=== PATIENT | male | born 1935 | race Caucasian/White ===

== ENCOUNTER 2018-11-04 10:15 | Inpatient (IN) | payer MEDICARE, BC ==
[~2018-11-04] VITALS: Ht 167.6 cm; Wt 96.2 kg
[2018-11-04] VITALS (8 sets, daily range): BP systolic 123–152; BP diastolic 55–77
--- NOTE | 2018-11-04 10:17 | NUR ---
Pt immediately to room # 13 with cane assist. Refused W/C.
[2018-11-04 11:00] LABS: HEMATOCRIT 34.5 % (39.0-50.0); HEMOGLOBIN 10.8 g/dl (14.0-18.0); IMMATURE GRANULOCYTES 0.3 % (0.0-5.0); MEAN CELL VOLUME 91.8 fL CALC (80.0-100.0); MEAN CORPUSCULAR HGB 28.7 pG CALC (26.0-32.0); MEAN CORPUSCULAR HGB CONC 31.3 g/L CALC (32.0-36.0); NEUT# 3.81 thou/uL (1.82-7.42); RED BLOOD COUNT 3.76 mill/uL (4.70-6.10); RED CELL DISTRI WIDTH 14.4 % (11.5-15.5)
[2018-11-04 11:18] LABS: ALBUMIN 4.2 g/dL (3.2-5.0); ALKALINE PHOSPHATASE 74 u/l (38-126); ANION GAP 15 (6-22 (CALC)); BILIRUBIN, TOTAL 0.9 mg/dL (0.0-1.4); BUN 28 mg/dL (8-23); BUN/CREATININE RATIO 24 (12-20 (CALC)); CARBON DIOXIDE 29 mmol/l (22-30); CHLORIDE 103 mmol/l (95-108); CREATININE 1.1 mg/dL (0.7-1.3); GFR > 60 ML/MIN (>=60 (CALC)); GFR FOR AFR.AMER. > 60 ML/MIN (>=60 (CALC)); POTASSIUM 4.1 mmol/l (3.5-5.1); SGOT/AST 29 u/l (19-48); SODIUM 142 mmol/l (137-146); TOTAL PROTEIN 7.2 g/dL (6.3-8.2)
[2018-11-04 11:30] LABS: MYOGLOBIN 70 ng/mL (0 - 121)
[2018-11-04 11:50] LABS: TSH, 3RD GENERATION 1.65 uIU/mL (0.47 - 4.68)
[2018-11-04] MEDS ORDERED: TORSEMIDE20 M1 PO (11:56)
[2018-11-04] MEDS ORDERED: OMEPRAZOLE10 MG PO (11:56)
[2018-11-04] MEDS ORDERED: MICRO-K10 ME1 PO (11:57)
[2018-11-04] MEDS ORDERED: MULTI VIT PO (11:57)
[2018-11-04] MEDS ORDERED: LOSARTAN POTASS50 MG PO (11:57)
[2018-11-04] MEDS ORDERED: FERROUS SULF324 M1 PO (11:58)
[2018-11-04] MEDS ORDERED: ATORVASTATIN CA40 MG PO (11:59)
[2018-11-04] MEDS ORDERED: AMLODIPINE5 MG PO (11:59)
[2018-11-04] MEDS ORDERED: FLUOXETINE10 M2 PO (12:00)
[2018-11-04] MEDS ORDERED: ASPIRIN EC325 MG PO (12:00)
[2018-11-04 12:04] LABS: URINE BILIRUBIN - DIPSTICK NEGATIVE (NEGATIVE); URINE BLOOD DIPSTICK NEGATIVE (NEGATIVE); URINE COLOR YELLOW; URINE GLUCOSE - DIPSTICK NEGATIVE (NEGATIVE); URINE KETONE NEGATIVE (NEGATIVE); URINE LEUK ESTERASE NEGATIVE (NEGATIVE); URINE NITRITE - DIPSTICK NEGATIVE (Negative); URINE PH 6.5 (4.5-8.0); URINE PROTEIN - DIPSTICK NEGATIVE (NEG-TRACE); URINE SPECIFIC GRAVITY <=1.005; URINE UROBILINOGEN - DIPSTICK 0.2 E.U./dL (0.2)
[2018-11-04] MEDS ORDERED: NITROGLYCERIN0.4 MG SL (12:06)
--- NOTE | 2018-11-04 14:13 | NUR ---
URINE OUTPUT 800 ML SINCE LASIX ADMINISTRATION. PT TAKEN TO ROOM 273 WITHOUT INCIDENT, REPORT WAS TO BRAULIO.
--- NOTE | 2018-11-04 15:45 | NUR ---
REPORT RECEIVED FROM BARB IN ED, PT ARRIVED ON UNIT VIA STRETCHER @ 1408 AND TRANSFERRED TO BED. ALERT AND ORIENTED X 3, ORIENTED TO ROOM AND CALL KAUFMAN, O2 @ 2L VIA NC IN PLACE WITH SHALLOW BREATHING, TELE MONITOR IN PLACE, DENY PAIN, WILL CONTINUE TO MONITOR, SPOUSE AT BEDSIDE.
--- NOTE | 2018-11-04 19:55 | NUR ---
PT. SITTING UP IN BED WITH NO DISTRESS NOTED AT THIS TIME; ASSESSMENT COMPLETED; IV SITE PATENT AND SL. UPDATED ON POC; VERBALIZES UNDERSTANDING; TELEMETRY IN PLACE; O2 INFUSING PER NC PER ORDER; INSTRUCTED TO CALL FOR ANY NEEDS; CALL LIGHT IS IN REACH; WILL CONTINUE TO MONITOR.
--- NOTE | 2018-11-04 20:10 | NUR ---
RECEIVED PHONE CALL PT'S HR DIPPED DOWN TO MID 30'S, BUT DID NOT SUSTAIN AND NOW IS STAYING IN THE MID TO HIGH 40'S; PT. IS ASYMPTOMATIC; NITRO PASTE REMOVED FROM CHEST; DENIES PAIN; CALL LIGHT IS IN REACH.
--- NOTE | 2018-11-04 20:51 | NUR ---
NOTIFIED DR. KATHLEEN OF HR DIPPING INTO THE 30'S AND SUSTAINING IN THE 40'S.
--- NOTE | 2018-11-04 21:47 | NUR ---
SPOKE WITH DR. KATHLEEN AND PER MD HE WANTS TO TRANSFER PT. TO ICU DUE TO LOW HR; UPDATED PT. AND IN ROOM AT THIS TIME.
--- NOTE | 2018-11-04 21:50 | NUR ---
REPORT GIVEN TO IZABEL CROOKS; NURSE TO CALL WHEN READY FOR PT. TO BE TRANSFERRED.
--- NOTE | 2018-11-04 22:05 | NUR ---
PT. BROUGHT TO ICU VIA W/C ACCOMPANIED BY THIS SUPERVISOR WEBBING; PT. ALBAN;
--- NOTE | 2018-11-04 22:22 | NUR ---
PT ARRIVED TO ICU UNIT AT 2205 VIA WHEELCHAIR WITH MEDSURG STAFF; ALERT AND ORIENTED AND IN STABLE CONDITION. AT BEDSIDE. DENIES PAIN ON ADMISSION. SLIGHLTY SOB WITH EXERTION; REAMAINS ON 3L OF OXYGEN VIA NC. CONNECTED TO CONTINUOUS TELE MONITORING; CURRENTLY AFIB 48 WITH BBB. ORIENTED TO ROOM AND CALL LIGHT SYSTEM. EDUCATED ON ICU VS. NO IMMEDIATE REQUESTS AT THIS TIME. NEW URINAL AND ICE WATER PROVIDED. SAFETY MEASURES IN PLACE. CALL LIGHT WITHIN REACH.
--- NOTE | 2018-11-04 23:12 | NUR ---
PT TURNED LIGHTS AND TV OUT. RESTING WITH EYES CLOSED AND NO SIGNS OF DISTRESS. STABLE TO TELEMETRY. WILL CONTINUE TO MONITOR.
[2018-11-05] VITALS (11 sets, daily range): BP systolic 106–143; BP diastolic 49–73
--- NOTE | 2018-11-05 01:37 | NUR ---
PT AWAKE USING URINAL. IV SITE APPEARS HEALTHY AND FLUSHES TO RAC. AFIB IN THE 50'S AND 60'S; PULSE DROPPED LOW 45 SINCE TRANSFER TO UNIT. NO REQUESTS OR CONCERNS AT THIS TIME. CALL LIGHT WITHIN REACH.
--- NOTE | 2018-11-05 03:40 | NUR ---
ASLEEP IN SEMI FOWLERS WITH NO SIGNS OF DISTRESS. NO CHANGES IN CONDITION. HEART RATE IN THE 40'S TO 60'S.
[2018-11-05 05:44] LABS: HEMATOCRIT 31.5 % (39.0-50.0); HEMOGLOBIN 9.9 g/dl (14.0-18.0); IMMATURE GRANULOCYTES 0.2 % (0.0-5.0); MEAN CELL VOLUME 90.8 fL CALC (80.0-100.0); MEAN CORPUSCULAR HGB 28.5 pG CALC (26.0-32.0); MEAN CORPUSCULAR HGB CONC 31.4 g/L CALC (32.0-36.0); NEUT# 3.85 thou/uL (1.82-7.42); RED BLOOD COUNT 3.47 mill/uL (4.70-6.10); RED CELL DISTRI WIDTH 14.3 % (11.5-15.5)
[2018-11-05 06:01] LABS: ALBUMIN 3.5 g/dL (3.2-5.0); ALKALINE PHOSPHATASE 68 u/l (38-126); AMYLASE < 30 u/l (30-110); ANION GAP 14 (6-22 (CALC)); BILIRUBIN, TOTAL 0.8 mg/dL (0.0-1.4); BUN 26 mg/dL (8-23); BUN/CREATININE RATIO 23 (12-20 (CALC)); CARBON DIOXIDE 29 mmol/l (22-30); CHLORIDE 103 mmol/l (95-108); CREATININE 1.1 mg/dL (0.7-1.3); GFR > 60 ML/MIN (>=60 (CALC)); GFR FOR AFR.AMER. > 60 ML/MIN (>=60 (CALC)); LIPASE 53 u/l (23-300); MAGNESIUM 2.1 mg/dL (1.6-2.3); POTASSIUM 4.2 mmol/l (3.5-5.1); SGOT/AST 20 u/l (19-48); SODIUM 142 mmol/l (137-146); TOTAL PROTEIN 5.9 g/dL (6.3-8.2)
--- NOTE | 2018-11-05 07:30 | NUR ---
ASSESSMENT IS COMPLETED: IV SITE IS FREE FROM REDNESS OR EDEMA. HR IS IRREGULAR, ABD IS SOFT WITH ACTIVE BS. BREATH SOUNDS ARE CLEAR WITH EXPIRATORY WHEEZING NOTED., O2 @ 2LITERS WITH NC. SOB ON EXERTION. CONTINUE TO OSBERVE AND MONITOR.
--- NOTE | 2018-11-05 10:00 | NUR ---
PT IS RELAXING AND VISITING WITH FAMILY AND FRIENDS.
--- NOTE | 2018-11-05 11:40 | NUR ---
IN TO VISIT WITH PT AND FAMILY. WAITING ON DR. NO TO SEE PT. TORACENTESIS CAN'T BE DONE UNTIL TOMORROW DUE TO LOVENOX, WILL RECHECK THE XRAY FOR FLUID
--- NOTE | 2018-11-05 12:00 | NUR ---
PT IS RELAXING IN BED WITH NO DISTRESS NOTED. SPOUSE IS IN THE ROOM. IV SITE IS FREE FROM REDNESS OR EDEMA.
--- NOTE | 2018-11-05 12:40 | NUR ---
PT TRANSPORTED TO XRAY VIA WC WITH STAFF. NO DISTRESS NOTED. FAMILY IN THE ROOM.
--- NOTE | 2018-11-05 13:06 | NUR ---
PT RETURNED FROM XRAY VIA WC ACCOMPANIED BY STAFF.
--- NOTE | 2018-11-05 14:00 | NUR ---
PT IS RELAXING IN BED WITH NO DISTRESS NOTED, IV SITE IS FREE FROM REDNESS OR EDEMA.
--- NOTE | 2018-11-05 15:25 | NUR ---
PT HR RATE IS 48 WHEN RESTING HE DROPS TO 39-43 THEN BACK UP TO THE 50'S
--- NOTE | 2018-11-05 16:00 | NUR ---
PT HAS BEEN RESTING ALARM HAS SOUNDED WHEN HEART RAT DROPS BELOW 45 THEN RETURNS TO THE 50'S, SOB ON EXERTION
--- NOTE | 2018-11-05 16:33 | NUR ---
Spoke with patient and his about any concerns they may have. Went through medication reconciliation list with the patient and his and verified what was entered was correct. Verified that the patient did not have any allergies. The patient uses [facility] as his Pharmacy and his primary care doctor is Dr. Merrill in [place], [place]. Instructed patient and his to contact pharmacy if there are any questions or concerns.
--- NOTE | 2018-11-05 17:25 | NUR ---
ZHOU FROM CASE MANAGEMENT CALLED TO INFORM THAT [facility]UKAS IN THE BUILDING.
--- NOTE | 2018-11-05 17:37 | NUR ---
INTO SEE PT.
--- NOTE | 2018-11-05 18:01 | NUR ---
PT IS SITTING UP ON THE SIDE OF THE BED SPOKE WITH DR. NO CURRENT HEART RATE IS 54
--- NOTE | 2018-11-05 18:07 | NUR ---
PT'S HRT RATE WENT TO 35 UP TO 49 WITH PVC'S
--- NOTE | 2018-11-05 18:24 | NUR ---
INFORMED CASE MANAGEMENT RE: MARYBEL, WANTS TO TAKE PT TOMORROW IF THE PT AGREES FOR [facility] TO HAVE POSSIBLE HEART CATH AND PACEMAKER/
--- NOTE | 2018-11-05 19:58 | NUR ---
BEDSIDE REPORT RECEIVED FROM AGUSTIN LEY. PT RESTING IN BED SEMI FOWLERS WATCHING TV; ALERT AND ORIENTED. RESPIRATIONS EVEN AND UNLABORED ON OXYGEN; TITRATED FROM 3L TO 2L AND OXYGEN SATURATION IS 97%. NEW ORDER IN FOR 80 MG OF LASIX. 16F TA CATHETER PLACED AT THIS TIME FOR ACCURATE I&0'S. PLAN OF CARE REVIEWED WITH PT INCLUDING TRANFER/DISCHARGE PLANS. ENCOURAGED TO VERBALIZE CONCERNS. SAFETY MEASURES IN PLACE. CALL LIGHT WITHIN REACH.
--- NOTE | 2018-11-05 21:49 | NUR ---
TA DRAINING CLEAR PALE YELLOW URINE IN LARGE AMOUNTS; PT TOLERATING WELL. IV SITE APPEARS HEALTHY AND FLUSHES. CINTIA HOSE ON; TELE IN PLACE. HEART RATE TEMPORARILY DOWN IN THE LOW 30'S; CURRENTLY AFIB 53. PT VERY TALKATIVE AND FRIENDLY. NO REQUESTS OR CONCERNS AT THIS TIME.
--- NOTE | 2018-11-05 23:13 | NUR ---
PT REQUESTING ICE CREAM; PROVIDED. NO OTHER REQUESTS OR COMPLAINTS AT THIS TIME.
[2018-11-06] VITALS (7 sets, daily range): BP systolic 109–156; BP diastolic 49–78
--- NOTE | 2018-11-06 01:08 | NUR ---
PT ASLEEP AT THIS TIME WITH NO SIGNS OF DISTRESS. RESPIRATIONS EVEN AND UNLABORED. NO ACUTE CHANGES IN CONDITION. SAFETY MEASURES IN PLACE. PT AWARE THAT STOOL SPECIMEN IS STILL NEEDED. CALL LIGHT WITHIN REACH.
--- NOTE | 2018-11-06 03:10 | NUR ---
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 DENIES PAIN. NO NEEDS AT THIS TIME. AFIB 48 WITH PVS ON TELE.
--- NOTE | 2018-11-06 04:48 | NUR ---
AN ADDITIONAL 325ML EMPTIED FROM TA. AFEBRILE. AM WEIGHT OBTAINED; 3 LB WEIGHT LOSS SINCE ADMISSION.
[2018-11-06 04:52] LABS: HEMATOCRIT 32.7 % (39.0-50.0); HEMOGLOBIN 10.2 g/dl (14.0-18.0); IMMATURE GRANULOCYTES 0.3 % (0.0-5.0); MEAN CELL VOLUME 91.3 fL CALC (80.0-100.0); MEAN CORPUSCULAR HGB 28.5 pG CALC (26.0-32.0); MEAN CORPUSCULAR HGB CONC 31.2 g/L CALC (32.0-36.0); NEUT# 3.38 thou/uL (1.82-7.42); RED BLOOD COUNT 3.58 mill/uL (4.70-6.10); RED CELL DISTRI WIDTH 14.2 % (11.5-15.5)
[2018-11-06 05:12] LABS: ALBUMIN 3.5 g/dL (3.2-5.0); ALKALINE PHOSPHATASE 67 u/l (38-126); ANION GAP 13 (6-22 (CALC)); BILIRUBIN, TOTAL 0.9 mg/dL (0.0-1.4); BUN 24 mg/dL (8-23); BUN/CREATININE RATIO 24 (12-20 (CALC)); CARBON DIOXIDE 30 mmol/l (22-30); CHLORIDE 102 mmol/l (95-108); GFR > 60 ML/MIN (>=60 (CALC)); GFR FOR AFR.AMER. > 60 ML/MIN (>=60 (CALC)); MAGNESIUM 2.1 mg/dL (1.6-2.3); POTASSIUM 4.3 mmol/l (3.5-5.1); SGOT/AST 23 u/l (19-48); SODIUM 141 mmol/l (137-146)
--- NOTE | 2018-11-06 06:25 | NUR ---
PT RESTING IN BED WITH EYES CLOSED AND NO SIGNS OF DISTRESS. RESPIRATIONS EVEN AND UNLABORED ON OXYGEN. CALL LIGHT WITHIN REACH. WILL CONTINUE TO MONITOR.
--- NOTE | 2018-11-06 08:14 | NUR ---
DR NO @BEDSIDE WITH PT & DISSCUSSING POC
--- NOTE | 2018-11-06 10:56 | NUR ---
PT SEEN AWAKE, ALERT, AT BEDSIDE. PT HAS BEEN SEEN BY DR NO AND DR KATHLEEN THIS MORNING. PLAN IS TO TRANSFER TO [facility] TODAY FOR CARDIAC CATH AND POSSIBLE PACEMAKER INSERTION. PT ASYMPTOMATIC WITH LOW HR IN THE UPPER 40s TO 50s OFTEN.
--- NOTE | 2018-11-06 12:11 | NUR ---
PT SITTING UP AT SIDE OF BED FOR LUNCH. PT AWARE OF PLAN TO TRANSFER TO [facility] AND WAIT TIME INVOLVED. NO DISTRESS, NO SYMPTOMATIC BRADYCARDIA, NO CHEST PAIN. REMAINS AT BEDSIDE.
--- NOTE | 2018-11-06 15:44 | NUR ---
JONO CALLED FROM TRANSFER CENTER TO SEE IF PT IS A&O FOR ROOM PLACEMENT. WILL CALL BACK SHORTLY WITH ROOM ASSIGNMENT.
--- NOTE | 2018-11-06 15:49 | NUR ---
PT GIVEN SHERBERT ICE CREAM FOR HIM & .
--- NOTE | 2018-11-06 16:22 | NUR ---
[facility] CALLED FOR TRANSPORT TO [facility], STATE 2 HOUR TIME FRAME. PT UPDATED ON NEW INFORMATION. REMAINS AT BEDSIDE, NOW UNSURE IF SHE WILL TRAVEL THERE TONIGHT. PT CONTINUES BEFORE, NO COMPLAINTS, NO DISTRESS.
--- NOTE | 2018-11-06 19:10 | NUR ---
awake. denies c/o. o2 cont per nc. pvc monitor shows a fib pvcs. #20 rac saline lock. sousa cath in place. urine clear. fall precautions cont. pt & aware of impending transfer.
--- NOTE | 2018-11-06 19:45 | NUR ---
[facility] here. report given to mina.
--- NOTE | 2018-11-06 20:05 | NUR ---
[facility] left.
--- NOTE | 2018-11-06 20:30 | NUR ---
[facility] called @ [phone]. spoke to randi. "josh is in a pts room. she'll call you back."
--- NOTE | 2018-11-06 21:15 | NUR ---
josh returned call. report given.
== END 2018-11-06 20:05 | disposition short-term general hospital (02) | DRG 292 ==
LOC: ED 10:15 → ED-I 11:25 → ED 12:16 → MS2 12:16 → ICU 12:16
PROVIDERS: Emergency Medicine; ADMIT Internal Medicine Nephrology; ATTEND Internal Medicine Nephrology
PROC: 0T9B70Z Drainage of Bladder with Drainage Device, Via Natural or Artificial Opening (ICD-10-PCS; principal; 2018-11-05)
DX: I11.0 Hypertensive heart disease with heart failure (principal); J91.8 Pleural effusion in other conditions classified elsewhere; I50.23 Acute on chronic systolic (congestive) heart failure; I25.5 Ischemic cardiomyopathy; I49.5 Sick sinus syndrome; I48.2 Chronic atrial fibrillation; I25.10 Atherosclerotic heart disease of native coronary artery without angina pectoris; K21.9 Gastro-esophageal reflux disease without esophagitis; E78.5 Hyperlipidemia, unspecified; F32.9 Major depressive disorder, single episode, unspecified; D64.9 Anemia, unspecified; G47.30 Sleep apnea, unspecified; Z95.1 Presence of aortocoronary bypass graft
CPT/HCPCS: G0378; J1650